=== PATIENT | female | born 1985 | race Caucasian/White ===

== ENCOUNTER 2017-04-07 12:52 | Inpatient (IN) | payer OTHER ==
[2017-04-07] MEDS ORDERED: OLIVE OIL 118 ML BTL ONE (13:07)
[2017-04-07] MEDS ORDERED: LIDOCAINE 1% 300 MG/30 ML SDV ONE (13:07)
[2017-04-07] MEDS ORDERED: AMMONIA AROMATIC 1 EACH AMP IH ONE (13:08)
[2017-04-07] MEDS ORDERED: OXYTOCIN 10 UNIT/ML VIAL ONE (13:09)
[2017-04-07] MEDS ORDERED: MISOPROSTOL 200 MCG TAB ONE (13:09)
[2017-04-07] MEDS ORDERED: LR 1,000 ML IV PRN (14:04)
[2017-04-07] MEDS ORDERED: TERBUTALINE SULFATE 1 MG/ML VIAL IV PRN (14:04)
[2017-04-07] MEDS ORDERED: OLIVE OIL 118 ML BTL MISC PRN (14:04)
[2017-04-07] MEDS ORDERED: EPSOM SALT 454 GM TP PRN (14:04)
[2017-04-07] MEDS ORDERED: OXYTOCIN/RINGERS LACTATE 1,000 ML IV PRN (14:04)
--- NOTE | 2017-04-07 14:08 | OBPROG ---
OBG Labor Progress Note Assessment/Plan: Assessment: Plan: Subjective: Doing well. More comfortable with POC now. So here in hospital with the patient. Discussed mackay bulb placement. Low dose pitocin. Continuous monitoring - SVE Dilation (cm): 2 Effacement (%): 75 Station: -2 - Physical Exam General Appearance: WD/WN, alert, no apparent distress Respiratory: chest non-tender, lungs clear, normal breath sounds Cardiac/Chest: regular rate, rhythm Abdomen: normal bowel sounds Extremities: normal range of motion, Rachid's sign (negative bilaterally) DTR- Lower Extremities: Knee (R): 1+, Knee (L): 1+ (no clonus) Skin: normal color, warm/dry Neuro/Psych: no motor/sensory deficits, alert, normal mood/affect, oriented x 3 ICD10 Worksheet Patient Problems: Problems Problem Status Onset SROM (spontaneous rupture of membranes) Acute Forceps or vacuum extractor delivery Acute Forceps or vacuum extractor delivery delivered Acute
[2017-04-07] MEDS ORDERED: OXYTOCIN/RINGERS LACTATE 500 ML IV SCH (14:30)
[2017-04-07 14:33] LABS: ABSOLUTE IMMATURE GRANULOCYTES 0.23 10^3/uL (0.00-0.10); ADD DIFF? NO; ADD MORPH? NO; ADD SCAN? NO; ATYPICAL LYMPHOCYTE FLAG 10 (0-99); FRAGMENT RBC FLAG 0 (0-99); HEMATOCRIT 37.6 % (38.0-47.0); HEMOGLOBIN 13.3 g/dL (12.6-16.3); LEFT SHIFT FLG 10 (0-99); LIPEMIA HEMOLYSIS FLAG 90 (0-99); MEAN CELL HEMOGLOBIN 33.3 pg (27.9-34.1); MEAN CELL HEMOGLOBIN CONCENTR. 35.4 g/dL (32.4-36.7); MEAN PLATELET VOLUME 10.6 fL (8.7-11.7); PLATELET CLUMPS FLAG 0 (0-99); PLATELET COUNT 135 10^3/uL (150-400); RED CELL DISTRIBUTION WIDTH 13.6 % (11.5-15.2)
--- NOTE | 2017-04-07 14:53 | GHP ---
[f rep st] HISTORY AND PHYSICAL DATE OF ADMISSION: 04/07/2017 HISTORY OF PRESENT ILLNESS: Patient is a 31-year-old 4, para 1, with an EDC of 04/13/2017, who comes to Labor and Delivery from the office with decreased movement, BPP of 4/8, and a gestational age of 39-1/7 weeks for induction of labor. The patient has been routinely seen with [facility] since 10 weeks and 2 days, with an early ultrasound that verified her due date of 04/13/2017. MEDICAL HISTORY: Patient has a history of migraines and anxiety. SURGICAL HISTORY: Egg retrieval donated to her sister and wisdom teeth extraction. SOCIAL HISTORY: Patient is a nonsmoker. Denies drug use. Denies alcohol use. with 1 child at home GYNECOLOGICAL HISTORY: Patient has previously had an abnormal Pap, that was ASCUS with negative high-risk HPV, and previously used OCPs. HISTORY: In 10/2013, a male who weighed 7 pounds 2 ounces at 39+ weeks; 12 hours of labor, spontaneous vaginal delivery with an epidural. In 12/2015, a 10-week SAB. In 05/2016, a 5 week SAB. And now this . FAMILY HISTORY: Noncontributory. PHYSICAL ASSESSMENT: CONSTITUTIONAL: Patient is awake, alert, AND oriented x3. LUNGS: Clear bilaterally. ABDOMEN: Bowel sounds are positive in all 4 quadrants. EXTREMITIES: DTRs 1+ bilaterally and Homans sign is negative bilaterally. LABORATORY DATA: Patient is A positive, antibody negative. Nonreactive RPR. Rubella low and immune. Hepatitis negative. HIV is negative. Trio screen negative. Urine culture, Pap tests, gonorrhea, and chlamydia all within normal limits. Verifi was negative. 1-hour GTT was within normal limits. GBS was negative. PLAN OF CARE: 1. GBS negative. 2. Carcamo bulb placement. 3. Low-dose Pitocin until [place] bulb falls out; then regular dose Pitocin, with patient's choice of medical management if needed for pain relief. /[id number]/MODL MTDD
--- NOTE | 2017-04-07 18:04 | OBPROG ---
OBG Labor Progress Note Assessment/Plan: Assessment:Cat1 fhr denies pain george regularly 4-5 minutes apart mackay bulb dc'd exam /-2 arom clear fluid pitocin at 6mu will begin pitocin per protocol Plan:pitocin per protocol , expectant management 04/07/17 18:01 Objective: 04/07/17 14:15 Patient ABO/Rh A POSITIVE 04/07/17 14:15 - SVE Dilation (cm): 6 Effacement (%): 80 Station: -2 - Procedures Non-surgical Procedures: Amniotomy (clear fluid) Oxytocin Orders Assessment - Pre-Induction/Augmentation Assessment Gestational Age: 39 week(s) and 1 day(s) ICD10 Worksheet Patient Problems: Problems Problem Status Onset Forceps or vacuum extractor delivery Acute Forceps or vacuum extractor delivery delivered Acute SROM (spontaneous rupture of membranes) Acute
--- NOTE | 2017-04-07 20:11 | OBPROG ---
OBG Labor Progress Note Assessment/Plan: Assessment:Cat1 fhr denies pain george regularly 4-5 minutes apart mackay bulb dc'd exam 8/100/0 arom clear fluid pitocin at 8mu will begin pitocin per protocol Plan:pitocin per protocol , expectant management 04/07/17 18:01 04/07/17 20:10 Objective: 04/07/17 14:15 Patient ABO/Rh A POSITIVE 04/07/17 14:15 - SVE Dilation (cm): 8 Effacement (%): 100 Station: 0 - Procedures Non-surgical Procedures: Amniotomy (clear fluid) Oxytocin Orders Assessment - Pre-Induction/Augmentation Assessment Gestational Age: 39 week(s) and 1 day(s) ICD10 Worksheet Patient Problems: Problems Problem Status Onset Forceps or vacuum extractor delivery Acute Forceps or vacuum extractor delivery delivered Acute SROM (spontaneous rupture of membranes) Acute
[2017-04-07] MEDS ORDERED: BUPIVACAINE/EPI 0.5% 30 ML SDV ONE (20:35)
[2017-04-07] MEDS ORDERED: fentaNYL 100 MCG/2 ML INJ ONE (20:35)
[2017-04-07] MEDS ORDERED: fentaNYL 2MCG/ML/BUP 0.1% RTU 100 ML BAG EP ONE (20:37)
--- NOTE | 2017-04-07 21:07 | OBDEL ---
Info Type: Vaginal GBS+: No Vaginal Delivery - Labor and Delivery Onset of Contractions Date: 04/07/17 Onset of Contractions Time: 14:49 Onset of Contractions Type: Induced Rupture of Membranes Date: 04/07/17 Rupture of Membranes Time: 17:50 Rupture of Membranes Type: Artificial Amniotic Fluid Color: Clear Dilation Complete Date: 04/07/17 Dilation Complete Time: 20:12 Non-surgical Procedures: Amniotomy (clear fluid) Vaginal Sponge Count Correct: Yes Vaginal Needle Count Correct: Yes Vaginal Sweep Performed: No EBL: 300 Delivery Events: Nuchal Cord - Medications Labor Augmentation/Induction Methods Used: Pitocin, Carcamo Bulb, Other (Specify) (nonreassuring bpp in the office 11/15. decreased movement at term) [place] [facility] Delivery Date: 04/07/17 Delivery Time: 20:46 MARY: 04/13/17 Gestational Age: 39 week(s) and 1 day(s) Sex of Infant: Male Score (1 Min): 9 Score (5 Min): 10 ICD10 Worksheet Patient Problems: Problems Problem Status Onset Forceps or vacuum extractor delivery Acute Forceps or vacuum extractor delivery delivered Acute SROM (spontaneous rupture of membranes) Acute
[2017-04-07] MEDS: IBUPROFEN 600 MG TAB PO PRN (21:18)
--- NOTE | 2017-04-08 00:17 | OBPP ---
Progress Note Assessment/Plan: Assessment:post hemorrage 500cc total after delivery per RN alex who weighed the pads uterine sweep completed antibiotic ancef x1 pitocin #2 bag at 150cc per hour in and out cath for 112cc cytotec 800mcg per rectum from ff@u to ff@U-3 Plan:continue observation 04/07/17 18:01 04/07/17 20:10 04/08/17 00:14 Objective: 04/07/17 14:15 Patient ABO/Rh A POSITIVE 04/07/17 14:15 Temp Pulse Resp BP Pulse Ox 36.8 C 96 18 109/60 04/07/17 22:43 04/07/17 22:43 04/07/17 22:43 04/07/17 22:43 Uterine Position/Fundal Height: At Umbilicus, Umbilicus -3 Uterine Tone: Firm
[2017-04-08] MEDS ORDERED: MISOPROSTOL 200 MCG TAB PR ONE (00:18)
[2017-04-08] MEDS ORDERED: MISOPROSTOL 200 MCG TAB PR SCH (00:30)
[2017-04-08] MEDS ORDERED: ceFAZolin 2 GM/DEXTROSE 100 ML IV ONE (00:48)
[2017-04-08] MEDS: IBUPROFEN 600 MG TAB PO PRN ×4 (02:57→21:04)
[2017-04-08 07:00] LABS: % IMMATURE GRANULYOCYTES 1.2 % (0.0-1.1); ABSOLUTE IMMATURE GRANULOCYTES 0.26 10^3/uL (0.00-0.10); ABSOLUTE NRBC COUNT 0.04 10^3/uL (0-0.01); ADD DIFF? NO; ADD MORPH? NO; ADD SCAN? NO; ATYPICAL LYMPHOCYTE FLAG 10 (0-99); FRAGMENT RBC FLAG 0 (0-99); HEMATOCRIT 27.7 % (38.0-47.0); HEMOGLOBIN 9.9 g/dL (12.6-16.3); LEFT SHIFT FLG 10 (0-99); LIPEMIA HEMOLYSIS FLAG 90 (0-99); MEAN CELL HEMOGLOBIN 33.8 pg (27.9-34.1); MEAN CELL HEMOGLOBIN CONCENTR. 35.7 g/dL (32.4-36.7); MEAN CELL VOLUME 94.5 fL (81.5-99.8); MEAN PLATELET VOLUME 11.5 fL (8.7-11.7); NRBC-AUTO% 0.2 % (0.0-0.2); PLATELET CLUMPS FLAG 20 (0-99); PLATELET COUNT 152 10^3/uL (150-400); RED BLOOD CELL COUNT 2.93 10^6/uL (4.18-5.33); RED CELL DISTRIBUTION WIDTH 13.6 % (11.5-15.2)
[2017-04-08 07:06] VITALS: RESP 16
--- NOTE | 2017-04-08 12:13 | OBPP ---
Progress Note Assessment/Plan: Assessment: 31 y/o PPD #1 s/p doing well. Plan: Bifera today for anemia. support and expect d/c home tomorrow. 04/08/17 12:12 Subjective: Pt is doing well this am. She has min pain, cramping controlled with Iburprofen. She is ambulating and voiding without difficulty and has min lochia. Breast feeding is going well and they are working on latching. Objective: 04/08/17 06:05 Patient ABO/Rh A POSITIVE 04/07/17 14:15 Temp Pulse Resp BP Pulse Ox 36.7 C 96 16 96/62 L 94 04/08/17 09:50 04/08/17 09:50 04/08/17 09:50 04/08/17 09:50 04/08/17 09:50 Uterine Position/Fundal Height: Umbilicus -2 Uterine Tone: Firm Physical Exam - Physical Exam General Appearance: WD/WN, alert, no apparent distress Neck: non-tender, full range of motion, supple Respiratory: chest non-tender, lungs clear, normal breath sounds Cardiac/Chest: regular rate, rhythm Abdomen: normal bowel sounds Extremities: swelling (no), Rachid's sign (neg)
[2017-04-08] MEDS: DOCUSATE SODIUM 100 MG CAP PO SCH ×2 (12:45→21:04)
[2017-04-08] MEDS: IRON POLYSAC/IRON HEME 28 MG TAB PO SCH (12:49)
[2017-04-08 22:05] VITALS: O2SAT 96
[2017-04-09] MEDS: DOCUSATE SODIUM 100 MG CAP PO SCH (07:56)
[2017-04-09] MEDS: IBUPROFEN 600 MG TAB PO PRN (07:57)
[2017-04-09] MEDS: IRON POLYSAC/IRON HEME 28 MG TAB PO SCH (07:57)
[2017-04-09 08:15] VITALS: BP 102/64; PULSE 76; TEMP 98
--- NOTE | 2017-04-09 10:05 | OBPP ---
Progress Note Assessment/Plan: Assessment: 1) s/p PPD # 2 - pt is stable 2) Anemia - pt is asymptomatic Plan: Plan for d/c home today Instructions reviewed with pt No RX given Pelvic rest Cont PNV RTC in 4 and 6 weeks 04/09/17 10:05 Subjective: Pt seen and examined. Doing well with no complaints. Mild cramping. Mod lochia. Ru regular diet. Voiding and passing flatus. No BM. BF without difficulty. Objective: 04/08/17 06:05 Patient ABO/Rh A POSITIVE 04/07/17 14:15 Temp Pulse Resp BP Pulse Ox 36.7 C 76 16 102/64 96 04/09/17 08:00 04/09/17 08:00 04/09/17 08:00 04/09/17 08:00 04/08/17 20:00 Uterine Position/Fundal Height: Umbilicus -2 Uterine Tone: Firm Physical Exam - Physical Exam General Appearance: WD/WN, alert, no apparent distress Respiratory: lungs clear, normal breath sounds Cardiac/Chest: regular rate, rhythm Abdomen: normal bowel sounds, non-tender, soft, flatus (+) Extremities: non-tender, normal inspection Skin: normal color, warm/dry Neuro/Psych: alert, normal mood/affect, oriented x 3
--- NOTE | 2017-04-09 10:11 | OBGCSDC ---
General Delivery Information - General Info : 4 Para: 1 Delivery Physician/CNM: Alannah Ochoa Admission Date: 04/07/17 Labs: Patient ABO/Rh A POSITIVE 04/07/17 14:15 Hct 28.1 % (38.0-47.0) L 04/08/17 06:05 Vaginal - Diagnosis Labor: Induced Rupture of Membranes Type: Artificial Amniotic Fluid Color: Clear Delivery Events: Nuchal Cord - Operations/Procedures Non-surgical Procedures: Amniotomy (clear fluid) L&D Analgesia/Anesthesia Type: Nitrous - Hospital Course Antepartum: Decreased FM. JIE wnl. Anxiety. Rubella low-immune. BPP 4/8. GBS neg. Intrapartum: IOL with mackay bulb and low dose Pitocin. EBL 300 cc. Uncomplicated . 3 hrs after delivery had PPH with 500 cc EBL. Received Cytotec. Had uterin sweep. Ancef given. : Uncomplicated. Mod lochia. Voiding without difficulty. Passing flatus, no BM. BF without difficulty. - Delivery Non-surgical Procedures: Amniotomy (clear fluid) L&D Analgesia/Anesthesia Type: Nitrous [place] [facility] Delivery Date: 04/07/17 Delivery Time: 20:46 MARY: 04/13/17 Gestational Age: 39 week(s) and 3 day(s) Sex of Infant: Male [place] Weight (gm): 3344 g Score (1 Min): 9 Score (5 Min): 9 Discharge Information - Discharge Information Discharge Medications: Ibuprofen, Vitamins Condition: Good Instruction/Follow Up: Four Weeks, Six Weeks Discharge Physician/CNM: Lyn Tolentino
== END 2017-04-09 11:15 | disposition home or self-care (01) | DRG 774 ==
LOC: FLD 12:52 → FOB 04-08 02:45
PROVIDERS: ADMIT Advanced Practice Midwife; ATTEND Obstetrics & Gynecology
DX: O69.81X0 Labor and delivery complicated by cord around neck, without compression, not applicable or unspecified (principal); O36.8190 Decreased fetal movements, unspecified trimester, not applicable or unspecified; O72.1 Other immediate postpartum hemorrhage; O90.81 Anemia of the puerperium; Z3A.39 39 weeks gestation of pregnancy; Z37.0 Single live birth
CPT/HCPCS: J0690; J2590; J3010